=== PATIENT | male | born 1980 | race Hispanic/Latino ===

== ENCOUNTER 2017-08-01 16:10 | Emergency (ER) | payer BC ==
[~2017-08-01] VITALS: Ht 175.3 cm; Wt 112.9 kg
[2017-08-01 18:43] LABS: BASOPHILS % 0.2 % (0.0-1.0); EOSINOPHILS # (AUTO) 0.1 (0.0-0.4); EOSINOPHILS % 0.8 % (0.0-6.0); HEMATOCRIT 38.3 % (38.2-49.6); HEMOGLOBIN 13.4 g/dL (14.0-18.0); LYMPHOCYTES # (AUTO) 2.2 (1.0-3.2); LYMPHOCYTES % 25.8 % (18.0-39.1); MEAN CORPUSCULAR HEMOGLOBIN 29.7 pg (28-32); MEAN CORPUSCULAR VOLUME 84.9 fL (81-99); MONOCYTES # (AUTO) 0.5 (0.2-0.8); NEUTROPHILS # (AUTO) 5.7 (2.1-6.9); NEUTROPHILS % 66.7 % (38.7-80.0); PLATELET COUNT 421 x10e3/uL (140-360); RED BLOOD COUNT 4.51 x10e6/uL (4.3-5.7); RED CELL DISTRIBUTION WIDTH 12.1 % (11.7-14.4)
[2017-08-01 18:47] LABS: INR 1.16; PROTHROMBIN TIME 13.9 seconds (11.9-14.5)
[2017-08-01 18:48] LABS: PARTIAL THROMBOPLASTIN TIME 41.8 seconds (23.8-35.5)
[2017-08-01 18:57] LABS: ALBUMIN 4.6 g/dL (3.5-5.0); ANION GAP 13.7 mmol/L (8-16); CALCIUM 10.2 mg/dL (8.4-10.2); CREATININE, SERUM 1.38 mg/dL (0.72-1.25); POTASSIUM 3.7 mmol/L (3.5-5.1)
--- NOTE | 2017-08-01 19:10 | Diagnostic Imaging Report ---
PROCEDURE: Frontal and lateral views of the chest. COMPARISON: None. INDICATIONS: CHEST PAIN, SHORT OF BREATH FINDINGS: Lines/tubes: None. Lungs: The lungs are well inflated and clear. There is no evidence of pneumonia or pulmonary edema. Pleura: There is no pleural effusion or pneumothorax. Heart and mediastinum: The heart and the mediastinum are normal. Bones: No acute bony abnormality. IMPRESSION: 1. No acute cardiopulmonary abnormalities. Cristiano Reyes M.D. Dictated by: Cristiano Reyes M.D. on 08/01/2017 at 19:11 Electronically approved by: Cristiano Reyes M.D. on 08/01/2017 at 19:11
[2017-08-01] MEDS ORDERED: SODIUM CHLORIDE 0.9% 1000ML 1,000 ML IV SCH (19:15)
[2017-08-01 19:18] LABS: THYROID STIMULATING HORMONE 1.006 uIU/mL (0.350-4.940)
--- NOTE | 2017-08-01 20:27 | Diagnostic Imaging Report ---
EXAM: CT Chest WITH contrast 08/01/2017 6:22 PM INDICATION: Shortness of breath. Pulmonary embolism. Chest pain. COMPARISON: April 12, 2016 TECHNIQUE: Chest was scanned utilizing a multidetector helical scanner from the lung apex through the level of the adrenal glands without administration of IV contrast. Coronal and sagittal reformations were obtained. Routine protocol was performed. IV CONTRAST: 100 mL of Isovue-370 RADIATION DOSE: Total DLP: 560.48 mGy*cm Estimated effective dose: (DLP x 0.014 x size factor) mSv COMPLICATIONS: None FINDINGS: LINES/ TUBES: None. LUNGS AND AIRWAYS: The lungs are unremarkable. Airways are normal. PLEURA: The pleural spaces are clear. HEART AND MEDIASTINUM: No pulmonary embolism is seen. The main pulmonary artery measures 3.4 cm in diameter. The thyroid gland is normal. No mediastinal, hilar or axillary lymphadenopathy. The heart is normal in size.. There is no pericardial effusion. UPPER ABDOMEN: Limited views of the upper abdomen show no abnormality within the visualized liver, spleen, pancreas, or kidneys. The adrenal glands are normal. BONES: The visualized bony thorax is within normal limits. SOFT TISSUES: Unremarkable. IMPRESSION: No pulmonary inlet and is seen. Prominent pulmonary artery could be due to pulmonary hypertension. Signed by: Dr. Quinton Patel M.D. on 08/01/2017 8:23 PM
[2017-08-01 20:56] VITALS: BP 131/81
[2017-08-01] MEDS ORDERED: SODIUM CHLORIDE 0.9% 50ML 50 ML ONE (23:02)
[2017-08-01] MEDS ORDERED: IOPAMIDOL 370 MG/ML 200 ML INFUS..BTL INJ ONE (23:02)
== END 2017-08-01 20:58 | disposition home or self-care (01) ==
LOC: ER 16:12
DX: R07.89 Other chest pain (principal); I10 Essential (primary) hypertension; E78.5 Hyperlipidemia, unspecified
CPT/HCPCS: 36415; 71046; 71260; 80053; 82550; 82553; 83880; 84443; 84484; 85025; 85610; 85730; 99284; Q9967

== ENCOUNTER → 2017-09-02 | Outpatient (CLI) | payer BC | LOC: SLEEP 19:25 | DX: G47.19 Other hypersomnia (principal) | CPT/HCPCS: 95811 ==